=== PATIENT | female | born 1955 | race Caucasian/White ===

== ENCOUNTER 2018-02-11 18:11 | Emergency (ER) | payer BC ==
[2018-02-11] MEDS ORDERED: IOPAMIDOL-300 100 ML VIAL IVP ONE ×2 (18:12→20:11)
--- NOTE | 2018-02-11 19:00 | ED Physician Documentation ---
PD HPI CHEST PAIN - Stated complaint Stated Complaint: CHEST PX/MIOD BACK PX - Chief complaint Chief Complaint: Cardiac - History obtained from History obtained from: Patient - History of Present Illness Timing - onset: Today (Sitting her computer around 6:00 and suddenly felt a sharp pain radiating from the left sternum through to the left scapula. It is better now but not resolved. Of note she is a family history of DVT/PE and took 3 long flights yesterday. Although she does deny shortness of breath, leg pain or swelling.) Review of Systems Ten Systems: 10 systems reviewed and negative Constitutional: denies: Fever, Chills Throat: denies: Dental pain / toothache, Sore throat Cardiac: reports: Chest pain / pressure. denies: Palpitations, Pedal edema, Calf pain Respiratory: denies: Dyspnea PD PAST MEDICAL HISTORY - Past Medical History Endocrine/Autoimmune: HyPOthyroidism GI: Cirrhosis Psych: Depression Derm: Herpes zoster - Past Surgical History General: Cholecystectomy, Colonoscopy, EGD HEENT: Cataracts - Present Medications Home Medications: Ambulatory Orders Medication Instructions Recorded Confirmed Levothyroxine Sodium [Levoxyl] 02/11/18 Metoprolol Succinate 50 mg PO 02/11/18 PARoxetine HCl [Paroxetine HCl] 20 mg PO 02/11/18 Potassium Chloride [Micro-K] 10 meq PO 02/11/18 - Allergies Allergies/Adverse Reactions: Allergies Allergy/AdvReac Type Severity Reaction Status Date / Time No Known Drug Allergies Allergy Verified 02/11/18 18:33 - Social History Does the pt smoke?: No Smoking Status: Never smoker Does the pt drink ETOH?: No Substance Use and Type: Marijuana - Family History Family history: reports: Non contributory PD ED PE NORMAL - Vitals Vital signs reviewed: Yes - General General: Alert and oriented X 3, No acute distress - HEENT HEENT: PERRL, EOMI - Neck Neck: Supple, no meningeal sign, No bony TTP - Cardiac Cardiac: RRR, No murmur - Respiratory Respiratory: No respiratory distress, Clear bilaterally - Abdomen Abdomen: Normal bowel sounds, Soft, Non tender - Back Back: No CVA TTP, No spinal TTP - Derm Derm: Normal color, Warm and dry - Extremities Extremities: No deformity, No tenderness to palpate, No edema, No calf tenderness / cord - Neuro Neuro: Alert and oriented X 3, Normal speech Results - Vitals Vitals: Vital Signs - 24 hr 02/11/18 02/11/18 02/11/18 18:27 19:10 20:42 Temperature 36.0 C L 36.1 C L Heart Rate 58 L 61 58 L Respiratory 18 14 15 Rate Blood Pressure 138/91 H 149/67 H 137/52 H O2 Saturation 99 96 99 Oxygen O2 Source Room air - EKG (time done) 1820 Rate: Rate (enter#) (64) Rhythm: NSR Mckinney: Normal Intervals: Normal TX QRS: Normal Ischemia: Q waves (III/F) Compare to prior EKG: Old EKG unavailable Computer interpretation: Agree with computer - Labs Labs: Laboratory Tests 02/11/18 02/11/18 02/11/18 16:58 16:58 16:58 WBC 7.0 RBC 4.70 Hgb 14.6 Hct 44.3 MCV 94.1 MCH 31.0 MCHC 33.0 RDW 14.2 Plt Count 212 MPV 7.9 Neut # 4.9 Lymph # 1.3 L Gila # 0.6 Eos # 0.2 Baso # 0.0 Absolute Nucleated RBC 0.00 Nucleated RBC % 0.1 Sodium 137 Potassium 3.9 Chloride 103 Carbon Dioxide 24 Anion Gap 10.0 BUN 15 Creatinine 0.7 Estimated GFR (MDRD) 84 L Glucose 95 Calcium 9.4 Total Bilirubin 1.0 AST 26 ALT 19 Alkaline Phosphatase 70 Troponin I < 0.04 Total Protein 7.2 Albumin 4.4 Globulin 2.8 Albumin/Globulin Ratio 1.6 Lipase 27 - Rads (name of study) CTA Chest Radiology: EMP read contemporaneously (NAD) PD MEDICAL DECISION MAKING - ED course ED course: 62-year-old woman with chest pain and the specific concern for DVT/PE given flights yesterday and family history of same. CTA of the chest was done negative for same and her heart score is 1 with nonischemic EKG and completely negative troponin. Departure - Departure Disposition: 01 Home, Self Care Clinical Impression: Chest pain Qualifiers: Chest pain type: unspecified Qualified Code(s): R07.9 - Chest pain, unspecified Condition: Good Record reviewed to determine appropriate education?: Yes Instructions: ED Chest Pain NonCardiac Comments: Call your doctor to arrange a follow-up appointment, make the next available appointment. In the interim, return anytime if worse or if new symptoms develop. Discharge Date/Time: 02/11/18 20:55
[2018-02-11] MEDS ORDERED: MORPHINE 2 MG/ML CARPUJECT IVP STA (19:01)
[2018-02-11 19:05] LABS: BASOPHILS % (AUTO) 0.5 %; EOSINOPHILS # (AUTO) 0.2 10^3/uL (0.0-0.7); EOSINOPHILS % (AUTO) 2.2 %; HGB - HEMOGLOBIN 14.6 g/dL (12.0-16.0); LYMPHOCYTES # (AUTO) 1.3 10^3/uL (1.5-3.5); LYMPHOCYTES % (AUTO) 19.3 %; MEAN CORPUSCULAR VOLUME 94.1 fL (81.0-99.0); MEAN PLATELET VOLUME 7.9 fL (7.9-10.8); MONOCYTES # (AUTO) 0.6 10^3/uL (0.0-1.0); MONOCYTES % (AUTO) 8.3 %; NEUTROPHILS # (AUTO) 4.9 10^3/uL (1.5-6.6); NEUTROPHILS % (AUTO) 69.7 %; PLT - PLATELET COUNT 212 10^3/uL (130-450); RED CELL DISTRIBUTION WIDTH 14.2 % (12.0-15.0)
[2018-02-11] MEDS ORDERED: IOPAMIDOL-300 100 ML VIAL ONE (19:11)
[2018-02-11 19:16] LABS: ALBUMIN 4.4 g/dL (3.2-5.5); ALBUMIN/GLOBULIN RATIO 1.6 (1.0-2.2); CALCIUM 9.4 mg/dL (8.5-10.3); CREATININE 0.7 mg/dL (0.4-1.0); TOTAL PROTEIN 7.2 g/dL (6.7-8.2)
[2018-02-11 20:43] VITALS: BP 137/52
--- NOTE | 2018-02-11 20:43 | CT Report ---
EXAM: CT ANGIOGRAM CHEST EXAM DATE: 02/11/2018 08:11 PM. CLINICAL HISTORY: Chest pain. COMPARISON: None. TECHNIQUE: Routine helical imaging was performed through the chest in the pulmonary arterial phase. I V Contrast: 80 ML Isovue-300. Reconstructions: Coronal 3-D MIP reconstructions.Sagittal and coronal. In accordance with CT protocol optimization, one or more of the following dose reduction techniques w ere utilized for this exam: automated exposure control, adjustment of mA and/or KV based on patient s ize, or use of iterative reconstructive technique. FINDINGS: Pulmonary Arteries: No evidence for pulmonary emboli. Lungs/Pleura: Complex air cyst seen anteriorly in the left lower lobe measuring 3.1 x 1.7 cm with adj acent linear opacity extending inferiorly, suspect scarring. No pleural effusion, consolidation, airs pace disease or pneumothorax. Mediastinum: No cardiac enlargement. 6 mm right hilar lymph node. No mediastinal or hilar lymphadenop athy. Thoracic Aorta: Unremarkable. Upper Abdomen: Liver surface irregularity as seen with liver cirrhosis. Status post cholecystectomy. Mildly dilated common duct measuring 1 cm. Focal cleft at the posterior aspect of the right hepatic l obe with focal liver calcification. No acute bone findings seen. IMPRESSION: 1. No evidence for pulmonary emboli. 2. No acute findings seen. 3. Liver cirrhosis. Status post cholecystectomy. Mildly dilated common duct. LAKSH[facility] Referring Provider Line: [phone] SITE ID: [id number]
--- NOTE | 2018-02-11 20:43 | CT Preliminary Report ---
Exam: CT CHEST ANGIO (PE) IMPRESSION: 1. No evidence for pulmonary emboli. 2. No acute findings seen. 3. Liver cirrhosis. Status post cholecystectomy. Mildly dilated common duct. [facility] SITE ID: [id number]
== END 2018-02-11 20:55 | disposition home or self-care (01) ==
LOC: ED 18:11
DX: R07.9 Chest pain, unspecified (principal); E03.9 Hypothyroidism, unspecified
CPT/HCPCS: 36415; 71275; 80053; 83690; 84484; 85025; 93005; 96374; 99283; 99284; Q9967

== ENCOUNTER 2019-01-01 08:11 | Outpatient (CLI) | payer MEDICARE, BC ==
--- NOTE | 2019-01-04 09:02 | Mammography Report ---
Reason: SCREENING MAMMO Procedure Date: 01/01/2019 Accession Number: [id number] / [id number] Procedure: PAUL - Screening Mammo w/Otto CPT Code: FULL RESULT: EXAM: Screening Mammo w/Otto DATE: 01/01/2019 8:47 AM CLINICAL HISTORY: Routine screening. No reported personal or family history of breast cancer. History of bilateral excisional biopsy. TECHNIQUE: Bilateral CC and MLO views were obtained. COMPARISON: 11/04/2013 through 05/11/2009 FINDINGS: The breasts demonstrate heterogeneously dense fibroglandular parenchyma bilaterally. Bilateral breasts: There are stable excisional biopsy changes in the upper outer breasts bilaterally. There are no suspicious masses, calcifications or areas of distortion. IMPRESSION: Benign findings RECOMMENDATION: Routine annual screening unless otherwise clinically indicated. BI-RADS CATEGORY 2: Benign findings STANDARD QUALIFYING STATEMENTS: 1. This examination was not reviewed with the aid of Computer-Aided Detection (CAD). 2. A negative or benign imaging report should not preclude biopsy if clinically suspicious findings are present. 3. Dense breasts may obscure an underlying neoplasm. 4. This examination was reviewed with the aid of 3D breast imaging (tomosynthesis).
== END 2019-01-01 08:12 | disposition home or self-care (01) ==
LOC: DI 08:11
DX: Z12.31 Encounter for screening mammogram for malignant neoplasm of breast (principal)
CPT/HCPCS: 77063; 77067

== ENCOUNTER 2019-04-02 08:00 | Outpatient (CLI) | payer MEDICARE, BC ==
[2019-04-02 18:37] LABS: BASOPHILS # (AUTO) 0.1 10^3/uL (0.0-0.1); BASOPHILS % (AUTO) 1.3 %; EOSINOPHILS # (AUTO) 0.1 10^3/uL (0.0-0.7); EOSINOPHILS % (AUTO) 3.5 %; HGB - HEMOGLOBIN 13.4 g/dL (12.0-16.0); LYMPHOCYTES # (AUTO) 1.1 10^3/uL (1.5-3.5); LYMPHOCYTES % (AUTO) 27.3 %; MEAN CORPUSCULAR HEMOGLOBIN 31.5 pg (27.0-31.0); MEAN CORPUSCULAR HGB CONC 32.9 g/dL (32.0-36.0); MEAN CORPUSCULAR VOLUME 95.9 fL (81.0-99.0); MEAN PLATELET VOLUME 8.4 fL (7.9-10.8); MONOCYTES # (AUTO) 0.4 10^3/uL (0.0-1.0); MONOCYTES % (AUTO) 9.7 %; NEUTROPHILS # (AUTO) 2.3 10^3/uL (1.5-6.6); NEUTROPHILS % (AUTO) 58.2 %; PLT - PLATELET COUNT 167 10^3/uL (130-450); RED BLOOD COUNT 4.24 10^6/uL (4.20-5.40)
[2019-04-02 18:59] LABS: HB2 TOTAL 13.7 g/dL; HEMOGLOBIN A1C 0.55 g/dL; HEMOGLOBIN A1C % 5.8 % (4.6-6.2)
[2019-04-02 19:00] LABS: ALBUMIN 3.9 g/dL (3.2-5.5); ALBUMIN/GLOBULIN RATIO 1.5 (1.0-2.2); ALKALINE PHOSPHATASE 60 IU/L (42-121); ALT ALANINE AMINOTRANSFERASE 17 IU/L (10-60); AST ASPARTATE AMINOTRANSFERASE 23 IU/L (10-42); BILIRUBIN,TOTAL 0.7 mg/dL (0.2-1.0); BUN - BLOOD UREA NITROGEN 18 mg/dL (6-20); CALCIUM 9.1 mg/dL (8.5-10.3); CARBON DIOXIDE - CO2 29 mmol/L (21-32); CHLORIDE 104 mmol/L (101-111); CHOLESTEROL 163 mg/dL; CREATININE 0.6 mg/dL (0.4-1.0); GFR - MDRD 100 (>89); GLUCOSE 79 mg/dL (70-100); HDL CHOLESTEROL 55 mg/dL; LDL CHOLESTEROL,CALCULATED 97 mg/dL; LDL/HDL RATIO 1.8 (<4.4); SODIUM 139 mmol/L (135-145); TOTAL PROTEIN 6.5 g/dL (6.7-8.2); VLDL CHOLESTEROL 11 mg/dL
== END 2019-04-02 23:59 | disposition home or self-care (01) ==
LOC: LAB.WCP 08:00
PROVIDERS: ATTEND Family Medicine
DX: R73.01 Impaired fasting glucose (principal); E78.5 Hyperlipidemia, unspecified; E03.9 Hypothyroidism, unspecified; R61 Generalized hyperhidrosis
CPT/HCPCS: 36415; 80053; 80061; 83036; 83721; 84443; 85025

== ENCOUNTER 2019-04-16 10:31 | Outpatient (CLI) | payer MEDICARE, BC ==
[2019-04-16] MEDS ORDERED: IOVERSOL 320 50 ML VIAL ONE (10:44)
[2019-04-16] MEDS ORDERED: IOVERSOL 320 100 ML VIAL IVP ONE ×2 (10:44→11:57)
[2019-04-16] MEDS ORDERED: IOVERSOL 320 50 ML VIAL PO ONE (11:57)
--- NOTE | 2019-04-16 15:07 | XRAY Report ---
Reason: RIGHT SHOULDER PAIN Procedure Date: 04/16/2019 Accession Number: [id number] / [id number] Procedure: XR - Shoulder 3 View RT CPT Code: FULL RESULT: EXAM: RIGHT SHOULDER RADIOGRAPHY EXAM DATE: 04/16/2019 10:46 AM. CLINICAL HISTORY: RIGHT SHOULDER PAIN. COMPARISON: None. TECHNIQUE: 3 views. FINDINGS: Bones: Normal. No fracture or bone lesion. Joints: AC joint hypertrophy. Glenohumeral joint intact Soft tissues: The visualized hemithorax is unremarkable. No soft tissue swelling. IMPRESSION: AC joint DJD RADIA
--- NOTE | 2019-04-17 05:11 | CT Report ---
Reason: NIGHT SWEATS, TOXIC EFFECT OF OTHER PESTICIDES, UN Procedure Date: 04/16/2019 Accession Number: [id number] / [id number] Procedure: CT - Abdomen/Pelvis W CPT Code: FULL RESULT: EXAM: CT ABDOMEN AND PELVIS EXAM DATE: 04/16/2019 11:56 AM. CLINICAL HISTORY: Night sweats, toxic effect of other pesticides, un. COMPARISONS: None. TECHNIQUE: Routine helical CT imaging was performed through the abdomen and pelvis. IV contrast: 80 ML Optiray 320. Enteric contrast: Present. Reconstructions: Coronal and sagittal. In accordance with CT protocol optimization, one or more of the following dose reduction techniques were utilized for this exam: automated exposure control, adjustment of mA and/or KV based on patient size, or use of iterative reconstructive technique. FINDINGS: ABDOMEN: Liver: Macronodular appearance of the liver, possibly to underlying cirrhosis. There are a few scattered periportal calcifications and associated parenchymal scarring within the posterior segment of the right lobe of the liver (image 27 series 3). Stomach/Distal Esophagus: No significant abnormality. Gallbladder: Surgically absent. Bile Ducts: Mild intrahepatic and extrahepatic biliary prominence, probably post cholecystectomy physiology. Pancreas: No significant abnormality. Spleen: No significant abnormality. Kidneys: No suspicious solid appearing lesion. No hydronephrosis. Small posteriorly arising low density focus within the right mid kidney is noted, measuring up to 1.5 cm (was 37 series 3), possibly a cyst. This is difficult to fully characterize on this exam. Adrenals: No significant abnormality. Bowel: No obstruction. Average fecal residual. Appendix: The appendix could not be identified with certainty. However, there are no secondary signs of appendicitis demonstrated at this time. Lymph Nodes: No pathologically enlarged nodes. Vasculature: Normal caliber aorta. Mild to moderate atherosclerosis noted. Fluid: No significant free fluid. Abdominal Wall: No significant abnormality. Other: No significant abnormality. PELVIS: Uterus and Ovaries: No significant abnormality. Bladder: No significant abnormality. Lymph Nodes: No pathologically enlarged nodes. Fluid: No significant free fluid. Other: None. BONES: No suspicious bony lesions. LOWER CHEST: No significant consolidation or effusion. There is focal bronchiolectasis within the lateral portion of the left lower lobe. No significant primary consolidation. Mild linear atelectasis within the lung bases. IMPRESSION: No definite acute abdominal or pelvic abnormality. RADIA
--- NOTE | 2019-04-17 13:21 | XRAY Report ---
Reason: GENERALIZED HYPERHIDROSIS Procedure Date: 04/16/2019 Accession Number: [id number] / [id number] Procedure: XR - Chest 2 View X-Ray CPT Code: 27881 FULL RESULT: EXAM: CHEST RADIOGRAPHY EXAM DATE: 04/16/2019 10:40 AM. CLINICAL HISTORY: GENERALIZED HYPERHIDROSIS. COMPARISON: XR CHEST PA AND LAT 09/02/2012 12:47 PM. TECHNIQUE: 2 views. FINDINGS: Lungs/Pleura: No focal opacities evident. No pleural effusion. No pneumothorax. Normal volumes. Mediastinum: Heart and mediastinal contours are unremarkable. Other: Cholecystectomy clips are seen in the right upper quadrant. IMPRESSION: No acute cardiopulmonary process. RADIA
== END 2019-04-16 10:32 | disposition home or self-care (01) ==
LOC: DI 10:31
PROVIDERS: ATTEND Family Medicine
DX: M19.011 Primary osteoarthritis, right shoulder (principal); R61 Generalized hyperhidrosis; T60 Toxic effect of pesticides
CPT/HCPCS: 71046; 73030; 74177; Q9967

== ENCOUNTER 2020-06-06 10:56 | Outpatient (CLI) | payer MEDICARE, BC ==
[2020-06-06 18:16] LABS: BASOPHILS # (AUTO) 0.1 10^3/uL (0.0-0.1); BASOPHILS % (AUTO) 1.1 %; EOSINOPHILS # (AUTO) 0.2 10^3/uL (0.0-0.7); EOSINOPHILS % (AUTO) 3.4 %; HGB - HEMOGLOBIN 13.5 g/dL (12.0-16.0); LYMPHOCYTES # (AUTO) 1.5 10^3/uL (1.5-3.5); LYMPHOCYTES % (AUTO) 31.3 %; MEAN CORPUSCULAR HEMOGLOBIN 32.2 pg (27.0-31.0); MEAN CORPUSCULAR HGB CONC 31.8 g/dL (32.0-36.0); MEAN CORPUSCULAR VOLUME 101.4 fL (81.0-99.0); MONOCYTES # (AUTO) 0.5 10^3/uL (0.0-1.0); MONOCYTES % (AUTO) 10.6 %; NEUTROPHILS # (AUTO) 2.5 10^3/uL (1.5-6.6); PLT - PLATELET COUNT 184 10^3/uL (130-450); RED BLOOD COUNT 4.19 10^6/uL (4.20-5.40); WHITE BLOOD COUNT 4.6 x10^3/uL (4.8-10.8)
[2020-06-06 18:39] LABS: ALBUMIN 4.1 g/dL (3.2-5.5); ALBUMIN/GLOBULIN RATIO 1.6 (1.0-2.2); ALKALINE PHOSPHATASE 90 IU/L (42-121); ALT ALANINE AMINOTRANSFERASE 21 IU/L (10-60); AST ASPARTATE AMINOTRANSFERASE 26 IU/L (10-42); BILIRUBIN,TOTAL 0.3 mg/dL (0.2-1.0); BUN - BLOOD UREA NITROGEN 14 mg/dL (6-20); CALCIUM 9.2 mg/dL (8.5-10.3); CARBON DIOXIDE - CO2 31 mmol/L (21-32); CHLORIDE 105 mmol/L (101-111); CHOL/HDL RATIO 2.6 (<4.4); CHOLESTEROL 163 mg/dL; CREATININE 0.7 mg/dL (0.4-1.0); GLUCOSE 97 mg/dL (70-100); HDL CHOLESTEROL 62 mg/dL; LDL CHOLESTEROL,CALCULATED 86 mg/dL; LDL/HDL RATIO 1.4 (<4.4); SODIUM 142 mmol/L (135-145); TOTAL PROTEIN 6.7 g/dL (6.7-8.2); VLDL CHOLESTEROL 15 mg/dL
[2020-06-06 19:05] LABS: HB2 TOTAL 13.8 g/dL; HEMOGLOBIN A1C 0.48 g/dL; HEMOGLOBIN A1C % 5.3 % (4.6-6.2)
== END 2020-06-06 23:59 | disposition home or self-care (01) ==
LOC: LAB.WCP 10:56
PROVIDERS: ATTEND Family Medicine
DX: J44.9 Chronic obstructive pulmonary disease, unspecified (principal); E03.9 Hypothyroidism, unspecified; R73.01 Impaired fasting glucose; E78.5 Hyperlipidemia, unspecified
CPT/HCPCS: 36415; 80053; 80061; 83036; 83721; 84443; 85025

== ENCOUNTER 2021-05-15 08:00 | Outpatient (CLI) | payer MEDICARE, BC ==
[2021-05-15 18:44] LABS: BASOPHILS # (AUTO) 0.1 10^3/uL (0.0-0.1); BASOPHILS % (AUTO) 1.3 %; EOSINOPHILS # (AUTO) 0.1 10^3/uL (0.0-0.7); EOSINOPHILS % (AUTO) 2.5 %; HCT - HEMATOCRIT 41.8 % (37.0-47.0); HGB - HEMOGLOBIN 13.2 g/dL (12.0-16.0); LYMPHOCYTES # (AUTO) 1.5 10^3/uL (1.5-3.5); LYMPHOCYTES % (AUTO) 28.1 %; MEAN CORPUSCULAR HEMOGLOBIN 31.7 pg (27.0-31.0); MEAN CORPUSCULAR HGB CONC 31.6 g/dL (32.0-36.0); MEAN CORPUSCULAR VOLUME 100.2 fL (81.0-99.0); MEAN PLATELET VOLUME 9.5 fL (7.9-10.8); MONOCYTES # (AUTO) 0.5 10^3/uL (0.0-1.0); MONOCYTES % (AUTO) 8.9 %; NEUTROPHILS # (AUTO) 3.1 10^3/uL (1.5-6.6); NEUTROPHILS % (AUTO) 58.8 %; PLT - PLATELET COUNT 200 10^3/uL (130-450); RED BLOOD COUNT 4.17 10^6/uL (4.20-5.40); RED CELL DISTRIBUTION WIDTH 13.4 % (12.0-15.0); WHITE BLOOD COUNT 5.3 x10^3/uL (4.8-10.8)
[2021-05-15 19:03] LABS: ALBUMIN 4.1 g/dL (3.2-5.5); ALBUMIN/GLOBULIN RATIO 1.5 (1.0-2.2); ALKALINE PHOSPHATASE 78 IU/L (42-121); ALT ALANINE AMINOTRANSFERASE 15 IU/L (10-60); AST ASPARTATE AMINOTRANSFERASE 21 IU/L (10-42); BILIRUBIN,TOTAL 0.8 mg/dL (0.2-1.0); BUN - BLOOD UREA NITROGEN 14 mg/dL (6-20); CALCIUM 9.4 mg/dL (8.5-10.3); CARBON DIOXIDE - CO2 31 mmol/L (21-32); CHLORIDE 103 mmol/L (101-111); CHOL/HDL RATIO 2.9 (<4.4); CHOLESTEROL 190 mg/dL; CREATININE 0.7 mg/dL (0.4-1.0); GFR - MDRD 83 (>89); GLUCOSE 92 mg/dL (70-100); HDL CHOLESTEROL 66 mg/dL; LDL CHOLESTEROL,CALCULATED 111 mg/dL; LDL/HDL RATIO 1.7 (<4.4); POTASSIUM 4.6 mmol/L (3.5-5.0); SODIUM 141 mmol/L (135-145); TOTAL PROTEIN 6.8 g/dL (6.7-8.2); TRIGLYCERIDES 63 mg/dL; VLDL CHOLESTEROL 13 mg/dL
[2021-05-15 19:18] LABS: THYROID STIMULATING HORMONE 1.51 uIU/mL (0.34-5.60)
[2021-05-15 20:12] LABS: ESTIMATED AVERAGE GLUCOSE 105 mg/dL (70-100); HEMOGLOBIN A1c% 5.3 % (4.27-6.07)
== END 2021-05-15 23:59 | disposition home or self-care (01) ==
LOC: LAB.WCP 08:00
PROVIDERS: ATTEND Family Medicine
DX: E03.9 Hypothyroidism, unspecified (principal); E78.5 Hyperlipidemia, unspecified; R73.01 Impaired fasting glucose
CPT/HCPCS: 36415; 80053; 80061; 83036; 83721; 84443; 85025

== ENCOUNTER 2021-05-21 13:26 | Outpatient (CLI) | payer MEDICARE, BC ==
--- NOTE | 2021-05-21 16:23 | XRAY Report ---
PROCEDURE: Knee 4 View BILAT INDICATIONS: BILATERAL KNEE PAIN TECHNIQUE: 4 views of the right and left knee(s) were acquired. COMPARISON: None. FINDINGS: Bones: No fractures or dislocations. No suspicious bony lesions. Moderate bilateral medial compartm ent arthritis including joint space narrowing and marginal osteophytosis. Mild bilateral lateral and patellofemoral compartment osteoarthritis including marginal osteophytosis. Soft tissues: No joint effusion. No suspicious soft tissue calcifications. IMPRESSION: 1. Bilateral knee osteoarthritis. 2. No fracture. No acute osseous lesion. If there persistent symptoms or continued clinical concern f or pathology, then repeat plain film radiographs (7-10 days) or advanced imaging (CT, MR, bone scan) should be considered for further evaluation. Reviewed by: Val Anderson MD, PhD on 05/21/2021 4:22 PM PDT Approved by: Val Anderson MD, PhD on 05/21/2021 4:22 PM PDT Station ID: [id number]
== END 2021-05-21 13:27 | disposition home or self-care (01) ==
LOC: DI 13:26
PROVIDERS: ATTEND Family Medicine
DX: M17.0 Bilateral primary osteoarthritis of knee (principal)

== ENCOUNTER 2021-10-18 14:26 | Outpatient (CLI) | payer MEDICARE, BC ==
--- NOTE | 2021-10-19 07:51 | Mammography Report ---
BILATERAL DIGITAL SCREENING MAMMOGRAM 3D/2D: 10/18/2021 CLINICAL: Routine screening. Comparison is made to exams dated: 01/01/2019 mammogram, 11/04/2013 mammogram, and 04/23/2012 mammogram - [facility]. The tissue of both breasts is heterogeneously dense. This may lower the sensitivity of mammography. There are benign calcifications in both breasts. No significant masses, calcifications, or other findings are seen in either breast. There has been no significant interval change. IMPRESSION: BENIGN There is no mammographic evidence of malignancy. A 1 year screening mammogram is recommended. This exam was interpreted at Station ID: [id number]. NOTE: For mammograms, a report in lay terms will be sent to the patient. Approximately 15% of breast malignancies will not be visualized mammographically. In the management of a palpable breast mass, a negative mammogram must not discourage biopsy of a clinically suspicious lesion. Electronically Signed By: Duke Velez M.D. aty/penrad:10/18/2021 15:29:57 ACR BI-RADS Category 2: Benign Finding(s) 3342F PARENCHYMAL PATTERN: (D) - The breast(s) demonstrate(s) heterogeneously dense fibroglandular parelena lora. BI-RADS CATEGORY: (2) - 2 RECOMMENDATION: (ANNUAL) - Recommend routine annual screening mammography. [id number] 1 year screening LATERALITY: (B)
== END 2021-10-18 14:27 | disposition home or self-care (01) ==
LOC: DI 14:26
DX: Z12.31 Encounter for screening mammogram for malignant neoplasm of breast (principal)

== ENCOUNTER 2022-02-21 08:42 | Outpatient (CLI) | payer MEDICARE, BC ==
--- NOTE | 2022-02-21 12:00 | DEXA Report ---
PROCEDURE: Dexa Spine and/or Hip INDICATIONS: OSTEOPENIA / SONE DISORDERS TECHNIQUE: Dual energy x-ray absorptiometry (DXA) was performed on a [employer] System. Regions measur ed are the AP Spine, femoral neck, and if needed forearm. COMPARISON: None. FINDINGS: Lumbar Spine: Bone Mineral Density 1.083 g/cm/cm,T score -0.8, normal Left Hip: Bone Mineral Density 0.777 g/cm/cm,T score -1.8, osteopenia Left Femoral Neck: Bone Mineral Density 0.759 g/cm/cm, T score -2.0, osteopenia (T score greater or equal to -1.0: NORMAL) (T score from -1.1 to -2.4: OSTEOPENIA) (T score less than or equal to -2.5 to: OSTEOPOROSIS) Impression: Osteopenia. Patients with diagnosis of osteoporosis or osteopenia should have regular bone mineral density assess ment. For those eligible for Medicare, routine testing is allowed once every 2 years. Testing frequ ency can be increased for patients who have rapidly progressing disease or for those who are receivin g medical therapy to restore bone mass. Reviewed by: Val Anderson MD, PhD on 02/21/2022 11:59 AM PDT Approved by: Val Anderson MD, PhD on 02/21/2022 11:59 AM PDT Station ID: [id number]
== END 2022-02-21 08:43 | disposition home or self-care (01) ==
LOC: DI 08:42
PROVIDERS: ATTEND Family Medicine
DX: M85.89 Other specified disorders of bone density and structure, multiple sites (principal)

== ENCOUNTER 2022-04-15 10:25 | Outpatient (CLI) | payer MEDICARE, BC ==
--- NOTE | 2022-04-15 13:23 | Ultrasound Report ---
PROCEDURE: Abdomen Complete INDICATIONS: CIRRHOSIS TECHNIQUE: Real-time scanning was performed of the abdominal and retroperitoneal organs, with image documentatio n. COMPARISON: CT abdomen pelvis 04/16/2019 FINDINGS: Liver: Liver is slightly diminutive in size measuring 11.8 cm in length. The parenchyma is diffusely coarse and mildly hyperechoic. The margin is nodular. Irregular heterogeneously hyperechoic mass kvng trally in the right lobe of the liver near the jacobo hepatis measuring 2.4 x 1.6 x 2.4 cm casting pos terior shadow. Main portal vein demonstrates appropriate direction of flow. Gallbladder: Gallbladder surgically absent. The common duct is slightly dilated at 11 mm. Intrahepati c bile ducts are normal caliber. Pancreas: Visualized portions of the pancreas are sonographically normal. Spleen: Spleen is normal in size at 9.9 cm in length, and homogeneous in echotexture. Kidneys: Kidneys are normal in size and echotexture. Right kidney measures 10.1 cm long; left kidne y measures 10.6 cm long. No hydronephrosis or nephrolithiasis. No solid masses. Simple cyst arisin g from the lateral right kidney. Aorta: Visualized aorta is normal in caliber at less than 3 cm. Iliacs: Proximal common iliac arteries are normal in caliber at less than 2.5 cm. IVC: Intrahepatic inferior vena cava is patent. Miscellaneous: No free abdominal fluid. IMPRESSION: 1. Cirrhotic liver morphology. 2. Irregular, echogenic, shadowing liver mass. Prior CT scan demonstrated a corresponding collection of coarse calcifications in the jacobo hepatis, though less extensive in size. Further evaluation with CT is recommended. 3. Minimal common duct dilatation post cholecystectomy. Correlate with LFTs to determine clinical sig nificance. Reviewed by: Cinthia Maldonado MD on 04/15/2022 1:22 PM PDT Approved by: Cinthia Maldonado MD on 04/15/2022 1:22 PM PDT Station ID: [id number]
== END 2022-04-15 10:26 | disposition home or self-care (01) ==
LOC: DI 10:25
PROVIDERS: ATTEND Physician Assistant
DX: K74.60 Unspecified cirrhosis of liver (principal); R16.0 Hepatomegaly, not elsewhere classified

== ENCOUNTER 2022-10-25 09:45 | Outpatient (CLI) | payer MEDICARE, BC ==
[2022-10-25] MEDS ORDERED: iohexoL-300 100 ML VIAL ONE (10:00)
[2022-10-25 10:09] LABS: ALBUMIN 4.2 g/dL (3.2-5.5); ALBUMIN/GLOBULIN RATIO 1.4 (1.0-2.2); BILIRUBIN,TOTAL 0.7 mg/dL (0.2-1.0); CALCIUM 9.4 mg/dL (8.5-10.3); CREATININE 0.8 mg/dL (0.4-1.0); TOTAL PROTEIN 7.1 g/dL (6.7-8.2)
--- NOTE | 2022-10-25 11:28 | MRI Report ---
PROCEDURE: BRAIN WO INDICATIONS: LIVER MASS, VISUAL HALOS, BALANCE PROBLEM TECHNIQUE: Noncontrast axial T1 spin echo, axial T2 fast spin echo, sagittal and axial FLAIR, coronal T2 fast sp in echo, axial gradient echo, axial diffusion and ADC through the brain. COMPARISON: None. FINDINGS: Image quality: Excellent. CSF Spaces: Basal cisterns are patent. No extra-axial fluid collections. Ventricles are normal in size and shape. Brain: There is a left frontal extra-axial low signal mass which is highly likely a benign calcified meningioma, measuring approximately 1.6 x 2.1 x 1.5 cm. No intra-axial masses. No hemorrhage. No int racranial masses or hemorrhage. Richardson/white matter interface is normal. Age-appropriate volume loss. No significant small vessel ischemic change. Brainstem appears normal. Diffusion-weighted images de monstrate no acute ischemic insult. No chronic ischemic insults. Normal intravascular flow voids ar e present. Skull and face: Calvarium has normal marrow signal. Orbits appear normal. Sinuses: Sinuses and mastoids are clear. IMPRESSION: 1. Probable incidental 2.1 cm maximum diameter left frontal meningioma without any mass effect or freeman ma. 2. No evidence acute intracranial process. Reviewed by: Jigar Tidwell MD on 10/25/2022 11:27 AM PST Approved by: Jigar Tidwell MD on 10/25/2022 11:27 AM PST Station ID: [id number]
--- NOTE | 2022-10-25 13:19 | CT Report ---
PROCEDURE: ABDOMEN W/WO INDICATIONS: LIVER MASS, VISUAL HALOS, BALANCE PROBLEM CONTRAST: 100ml omni 300 TECHNIQUE: 4 phase scanning was performed. After the administration of intravenous contrast, 5 mm thick section s acquired from the diaphragm to the symphysis. 5 mm coronal and sagittal reformats were acquired. For radiation dose reduction, the following was used: automated exposure control, adjustment of mA a nd/or kV according to patient size. COMPARISON: MRI abdomen 05/23/2022. Abdominal ultrasound 04/15/2022. CT abdomen and pelvis 04/16/2019. CT pulmonary angiogram 02/11/2018. FINDINGS: Image quality: Good. Lung bases: No pleural effusion. Cyst at the left lower lobe. Heart size is normal. Liver: Lobulated appearance. Small calcification at the medial right lobe of the liver measuring 1.2 cm, (05/27), remotely 1.8 cm in 2019. No arterial hyperenhancement. No washout. Other solid organs: Gallbladder is absent. Biliary system is non dilated. Pancreas is normal in mo rphology. Spleen is normal in size and enhancement. No adrenal nodules. Both kidneys demonstrate n ormal size and enhancement, without hydronephrosis or nephrolithiasis. Nodes and vessels: No retroperitoneal or mesenteric adenopathy by size criteria. Aorta and inferior vena cava are normal in size. Mild to moderate calcified plaque. Bowel and peritoneum: Unenhanced bowel loops are normal in caliber. No free fluid or air. Bones: No suspicious bony lesions. No vertebral body compression fractures. Miscellaneous: No ventral hernias. IMPRESSION: 1. No LR 4 or LR 5 observations to suggest HCC. 2. Right lobe medial calcified lesion is decreased in size compared to 2019. No suspicious enhancemen t demonstrated. 3. No adenopathy. Reviewed by: Edu Lozada MD on 10/25/2022 1:18 PM PST Approved by: Edu Lozada MD on 10/25/2022 1:18 PM PST Station ID: [id number]
[2022-10-25] MEDS: iohexoL-300 100 ML VIAL IVP ONE (14:14)
== END 2022-10-25 09:46 | disposition home or self-care (01) ==
LOC: LAB 09:45
PROVIDERS: ATTEND Physician Assistant
DX: K70.30 Alcoholic cirrhosis of liver without ascites (principal); H53.19 Other subjective visual disturbances; R27.9 Unspecified lack of coordination; K76.89 Other specified diseases of liver
CPT/HCPCS: 36415; 70551; 74170; 80053; Q9967

== ENCOUNTER 2024-03-30 15:09 | Outpatient (CLI) | payer MEDICARE, BC ==
--- NOTE | 2024-04-01 10:58 | Mammography Report ---
BILATERAL DIGITAL SCREENING MAMMOGRAM 3D/2D: 03/30/2024 CLINICAL: Routine screening. Comparison is made to exams dated: 10/18/2021 mammogram and 01/01/2019 mammogram - [facility]. There are scattered areas of fibroglandular density in both breasts (category b / 25%-50% glandular t issue). There is an asymmetry in the right breast anterior depth central to the nipple seen on the mediolater al oblique view only. No other significant masses, calcifications, or other findings are seen in either breast. IMPRESSION: INCOMPLETE: NEEDS ADDITIONAL IMAGING EVALUATION The asymmetry in the right breast is indeterminate. Additional views with possible ultrasound are re commended. Based on the Tyrer Cuzick model (a risk assessment model) the patient's lifetime risk is 4.6% and her 10 year risk is 2.9%. According to the ACR, ACS, and NCCN guidelines, an annual breast MRI exam lorraine g with mammogram is recommended if the patient's lifetime risk is 20% or greater. This exam was interpreted at Station ID: [id number]. NOTE: For mammograms, a report in lay terms will be sent to the patient. Approximately 15% of breast malignancies will not be visualized mammographically. In the management of a palpable breast mass, a negative mammogram must not discourage biopsy of a clinically suspicious lesion. Electronically Signed By: Sarah heck/jennyfer:03/31/2024 12:49:46 ACR BI-RADS Category 0: Incomplete 3340F PARENCHYMAL PATTERN: (A) - The breast(s) demonstrate(s) scattered fibroglandular densities. BI-RADS CATEGORY: (0) - 0 Mammo and [place] [id number] Immediate follow-up LATERALITY: (B)
== END 2024-03-30 15:10 | disposition home or self-care (01) ==
LOC: DI 15:09
PROVIDERS: ATTEND Nurse Practitioner
DX: Z12.31 Encounter for screening mammogram for malignant neoplasm of breast (principal); R92.8 Other abnormal and inconclusive findings on diagnostic imaging of breast; R92.323 Mammographic fibroglandular density, bilateral breasts

== ENCOUNTER 2024-04-19 12:44 | Outpatient (CLI) | payer MEDICARE, BC ==
--- NOTE | 2024-04-19 14:03 | XRAY Report ---
PROCEDURE: Knee 4+V RT INDICATIONS: PAIN IN RIGHT KNEE TECHNIQUE: 4 views of the knee(s) were acquired. COMPARISON: None. FINDINGS: Bones: No fractures or dislocations. No suspicious bony lesions. Tricompartmental joint space narro wing with associated osteophytosis. Soft tissues: No knee joint effusion. No suspicious soft tissue calcifications or masses. Chondroca lcinosis. IMPRESSION: Mild to moderate tricompartmental osteoarthritis. Kellgren-Fidencio scale of osteoarthritis: 2. Chondrocalcinosis, which could be age-related, associated with CPPD or parathyroid disorder. Reviewed by: Benedicto Barcenas MD on 04/19/2024 2:02 PM PDT Approved by: Benedicto Barcenas MD on 04/19/2024 2:02 PM PDT Station ID: [id number]
== END 2024-04-19 12:45 | disposition home or self-care (01) ==
LOC: DI 12:44
PROVIDERS: ATTEND Physician Assistant Surgical
DX: M17.11 Unilateral primary osteoarthritis, right knee (principal); M11.261 Other chondrocalcinosis, right knee

== ENCOUNTER 2024-05-05 10:28 | Outpatient (CLI) | payer MEDICARE, BC ==
--- NOTE | 2024-05-06 10:21 | Mammography Report ---
UNILATERAL RIGHT DIGITAL DIAGNOSTIC MAMMOGRAM 3D/2D WITH SPOT COMPRESSION: 05/05/2024 CLINICAL: Patient returns today to evaluate an asymmetry in the right breast. Comparison is made to exams dated: 03/30/2024 mammogram, 01/01/2019 mammogram, and 10/18/2021 mammogram - [facility]. There are scattered areas of fibroglandular density in the right breast (category b / 25%-50% glandul ar tissue). There is an asymmetry in the right breast anterior depth superior region seen on the mediolateral obl ique view only. This is seen in additional views. No other significant masses or calcifications are seen in the breast. IMPRESSION: INCOMPLETE: NEEDS ADDITIONAL IMAGING EVALUATION The asymmetry in the right breast is indeterminate. An ultrasound is recommended. Based on the Tyrer Cuzick model (a risk assessment model) the patient's lifetime risk is 4.6% and her 10 year risk is 2.9%. According to the ACR, ACS, and NCCN guidelines, an annual breast MRI exam lorraine g with mammogram is recommended if the patient's lifetime risk is 20% or greater. This exam was interpreted at Station ID: [id number]. NOTE: For mammograms, a report in lay terms will be sent to the patient. Approximately 15% of breast malignancies will not be visualized mammographically. In the management of a palpable breast mass, a negative mammogram must not discourage biopsy of a clinically suspicious lesion. Electronically Signed By: Pravin Islas M.D. lc/:05/05/2024 11:45:48 ACR BI-RADS Category 0: Incomplete 3340F PARENCHYMAL PATTERN: (A) - The breast(s) demonstrate(s) scattered fibroglandular densities. BI-RADS CATEGORY: (0) - 0 Ultrasound [id number] Immediate follow-up LATERALITY: (B)
--- NOTE | 2024-05-06 10:22 | Ultrasound Report ---
LIMITED ULTRASOUND OF RIGHT BREAST AND AXILLA: 05/05/2024 CLINICAL: Patient returns today to evaluate a focal asymmetry in the right breast. Comparison is made to exams dated: 03/30/2024 mammogram, 10/18/2021 mammogram, and 01/01/2019 mammogram - [facility]. Color flow ultrasound of the right breast 12 o'clock, retroareolar, and axilla regions was performed. Richardson scale images of the real-time examination were reviewed. There is a possible 0.8 cm x 0.4 cm x 0.7 cm oval mass in the right breast at 12 o'clock in the retro areolar region 1 cm from the nipple. This correlates with mammography findings. No significant abnormalities were seen sonographically in the right axilla. IMPRESSION: SUSPICIOUS OF MALIGNANCY The possible 0.8 cm x 0.4 cm x 0.7 cm oval mass vs. complicated cyst in the right breast is at a low suspicion for malignancy. US biopsy recomended. This exam was interpreted at Station ID: [id number]. Electronically Signed By: Pravin Islas M.D. lc/:05/05/2024 11:47:16 Ultrasound BI-RADS: 4a Low suspicion for malignancy BI-RADS CATEGORY: (4a) - Low Susp Biopsy follow-up [id number] Immediate follow-up LATERALITY: (B)
== END 2024-05-05 10:29 | disposition home or self-care (01) ==
LOC: DI 10:28
PROVIDERS: ATTEND Nurse Practitioner
DX: R92.8 Other abnormal and inconclusive findings on diagnostic imaging of breast (principal); R92.321 Mammographic fibroglandular density, right breast

== ENCOUNTER 2024-05-19 09:59 | Outpatient (CLI) | payer MEDICARE, BC ==
[~2024-05-19 09:59] MED LIST: LIDOCAINE 1%-EPI 1:100000 20 ML MDV ONE; LIDOCAINE-MPF 1% 5 ML VIAL ONE
[2024-05-19] MEDS: LIDOCAINE 1%-EPI 1:100000 20 ML MDV SUBQ ONE (11:59)
[2024-05-19] MEDS: LIDOCAINE-MPF 1% 5 ML VIAL TD ONE (12:01)
--- NOTE | 2024-05-20 10:33 | Mammography Report ---
UNILATERAL RIGHT DIGITAL DIAGNOSTIC MAMMOGRAM - RIGHT BREAST POST-PROCEDURE IMAGING FOR MARKER PLACEM ENT: 05/19/2024 CLINICAL: Post right breast ultrasound biopsy clip placement imaging. Comparison is made to exams dated: 05/05/2024 ultrasound, 05/05/2024 mammogram, 03/30/2024 mammogram, mammogram, and 05/19/[address] - [facility]. There are scattered areas of fibroglandular density in the right breast (category b / 25%-50% glandul ar tissue). There is a marker clip in the appropriate position in the right breast at 12 o'clock anterior depth. This marker clip placement is at the biopsy site. IMPRESSION: POST PROCEDURE MAMMOGRAM FOR MARKER PLACEMENT There was a successful marker clip placement in the right breast anterior depth. Based on the Tyrer Cuzick model (a risk assessment model) the patient's lifetime risk is 4.4% and her 10 year risk is 3.0%. According to the ACR, ACS, and NCCN guidelines, an annual breast MRI exam lorraine g with mammogram is recommended if the patient's lifetime risk is 20% or greater. This exam was interpreted at Station ID: [id number]. NOTE: For mammograms, a report in lay terms will be sent to the patient. Approximately 15% of breast malignancies will not be visualized mammographically. In the management of a palpable breast mass, a negative mammogram must not discourage biopsy of a clinically suspicious lesion. Electronically Signed By: Gordon Parekh M.D. ar/penrad:05/19/2024 21:06:38 ACR BI-RADS Category Post-procedure mammogram for marker placement PARENCHYMAL PATTERN: (A) - The breast(s) demonstrate(s) scattered fibroglandular densities. BI-RADS CATEGORY: () - Unspecified - other recall n/a LATERALITY: (B)
--- NOTE | 2024-05-21 13:06 | Ultrasound Report ---
ULTRASOUND GUIDED BIOPSY RIGHT BREAST USING VACUUM DEVICE WITH MARKING DEVICE INSERTED AND POST DIGIT AL MAMMOGRAPHIC IMAGIN05/19/2024 CLINICAL: Post right breast ultrasound biopsy clip placement imaging. PATIENT CONSENT: Risks (minor bleeding, infection, vasovagal reaction and repeat procedure), benefits and alternatives were explained to the patient and written informed consent was obtained. Correlation is made to exams dated: 05/19/2024 mammogram, 05/05/2024 ultrasound, 05/05/2024 mammogram, mammogram, and 10/18/2021 mammogram - [facility]. An ultrasound guided biopsy using real-time ultrasound was performed for the 0.8 cm x 0.4 cm x 0.7 cm oval mass located in the right breast at 12 o'clock in the retroareolar region 1 cm from the nipple. This was described on the previous mammography and ultrasound reports. The skin was prepped in the usual manner. Local anesthetic was administered to the access site. A skin katelin was made in the br east. The abnormality was approached from the lateral aspect. A 13 gauge biopsy needle was placed a djacent to the abnormality under ultrasound guidance. Once the needle was documented to be in the co rrect location, four specimens were obtained using the [employer] biopsy system. A clip was inserted into the biopsy cavity. A sterile dressing was applied to the access site. Post procedure digital m ammographic imaging demonstrates the location device at the targeted area. The specimens were sent t o the laboratory for pathological analysis. IMPRESSION: ULTRASOUND GUIDED BIOPSY BENIGN Ultrasound guided biopsy of the 0.8 cm x 0.4 cm x 0.7 cm mass in the right breast at 12 o'clock in th e retroareolar region 1 cm from the nipple was successful with no apparent post procedure complicatio ns. Pathology indicates benign "involuting fibroadenoma. Negative for duct epithelial hyperplasia, in sit u or invasive carcinoma." Pathology results are concordant with imaging findings. Return to annual mammogram screening schedule is recommended. This exam was interpreted at Station ID: [id number]. Gordon Parekh M.D. ar/:05/21/2024 10:10:41 BI-RADS CATEGORY: () - Mammogram [id number] return to screening LATERALITY: (B)
== END 2024-05-19 10:00 | disposition home or self-care (01) ==
LOC: DI 09:59
PROVIDERS: ATTEND Nurse Practitioner
DX: D24.1 Benign neoplasm of right breast (principal)
CPT/HCPCS: 19083

== ENCOUNTER 2024-05-20 12:50 | Outpatient (CLI) | payer MEDICARE, BC ==
--- NOTE | 2024-05-21 11:45 | DEXA Report ---
PROCEDURE: Dexa Spine and/or Hip INDICATIONS: POST MENOPAUSAL TECHNIQUE: Dual energy x-ray absorptiometry (DXA) was performed on a [email or web address] System. Regions measur ed are the AP Spine, femoral neck, and if needed forearm. COMPARISON: 02/21/2022 FINDINGS: Lumbar Spine: Bone Mineral Density: 1.095 g/cm/cm,T score: -0.7, normal. Change from previous 1.1% Left Femoral Neck: Bone Mineral Density: 0.746 g/cm/cm, T score: -2.1, osteopenia. Left Hip: Bone Mineral Density: 0.756 g/cm/cm,T score: -2.0, osteopenia. Change from previous -2.7% (T score greater or equal to -1.0: NORMAL) (T score from -1.1 to -2.4: OSTEOPENIA) (T score less than or equal to -2.5 to: OSTEOPOROSIS) Impression: By WHO criteria, this patient has low bone density (osteopenia). No significant interval change in bone mineral density of the lumbar spine. No significant interval c hange in bone mineral density of the hip. Patients with diagnosis of osteoporosis or osteopenia should have regular bone mineral density assess ment. For those eligible for Medicare, routine testing is allowed once every 2 years. Testing frequ ency can be increased for patients who have rapidly progressing disease or for those who are receivin g medical therapy to restore bone mass. Reviewed by: Cinthia Maldonado MD on 05/21/2024 11:43 AM PDT Approved by: Cinthia Maldonado MD on 05/21/2024 11:43 AM PDT Station ID: [id number]
== END 2024-05-20 12:51 | disposition home or self-care (01) ==
LOC: DI 12:50
PROVIDERS: ATTEND Nurse Practitioner
DX: M85.89 Other specified disorders of bone density and structure, multiple sites (principal); Z78.0 Asymptomatic menopausal state

== ENCOUNTER 2024-06-04 09:21 | Outpatient (CLI) | payer MEDICARE, BC ==
[2024-06-04 09:33] LABS: BASOPHILS # (AUTO) 0.1 10^3/uL (0.0-0.1); BASOPHILS % (AUTO) 1.7 %; EOSINOPHILS # (AUTO) 0.1 10^3/uL (0.0-0.7); EOSINOPHILS % (AUTO) 2.2 %; HCT - HEMATOCRIT 41.8 % (37.0-47.0); HGB - HEMOGLOBIN 13.2 g/dL (12.0-16.0); LYMPHOCYTES # (AUTO) 1.6 10^3/uL (1.5-3.5); LYMPHOCYTES % (AUTO) 38.7 %; MEAN CORPUSCULAR HEMOGLOBIN 30.6 pg (27.0-31.0); MEAN CORPUSCULAR HGB CONC 31.6 g/dL (32.0-36.0); MEAN CORPUSCULAR VOLUME 96.8 fL (81.0-99.0); MEAN PLATELET VOLUME 9.1 fL (7.9-10.8); MONOCYTES # (AUTO) 0.5 10^3/uL (0.0-1.0); MONOCYTES % (AUTO) 11.2 %; NEUTROPHILS # (AUTO) 1.9 10^3/uL (1.5-6.6); PLT - PLATELET COUNT 190 10^3/uL (130-450); RED BLOOD COUNT 4.32 10^6/uL (4.20-5.40); RED CELL DISTRIBUTION WIDTH 13.7 % (12.0-15.0)
[2024-06-04 09:48] LABS: ALBUMIN 4.2 g/dL (3.2-5.5); ALBUMIN/GLOBULIN RATIO 1.7 (1.0-2.2); ALKALINE PHOSPHATASE 78 IU/L (42-121); ALT ALANINE AMINOTRANSFERASE 9 IU/L (10-60); AST ASPARTATE AMINOTRANSFERASE 16 IU/L (10-42); BILIRUBIN,TOTAL 0.6 mg/dL (0.2-1.0); BUN - BLOOD UREA NITROGEN 9 mg/dL (6-20); CALCIUM 9.6 mg/dL (8.5-10.3); CARBON DIOXIDE - CO2 31 mmol/L (21-32); CHLORIDE 104 mmol/L (101-111); CHOL/HDL RATIO 3.4 (<4.4); CHOLESTEROL 185 mg/dL; CREATININE 0.9 mg/dL (0.6-1.3); GFR - MDRD 62 (>89); GLUCOSE 107 mg/dL (74-104); HDL CHOLESTEROL 55 mg/dL; LDL CHOLESTEROL,CALCULATED 115 mg/dL; LDL/HDL RATIO 2.1 (<4.4); SODIUM 141 mmol/L (135-145); TOTAL PROTEIN 6.7 g/dL (6.4-8.9); TRIGLYCERIDES 73 mg/dL (48-352); VLDL CHOLESTEROL 15 mg/dL
[2024-06-04 10:04] LABS: THYROID STIMULATING HORMONE 2.56 uIU/mL (0.34-5.60)
== END 2024-06-04 09:22 | disposition home or self-care (01) ==
LOC: LAB 09:21
PROVIDERS: ATTEND Nurse Practitioner
DX: R53.83 Other fatigue (principal); E03.9 Hypothyroidism, unspecified; K70.30 Alcoholic cirrhosis of liver without ascites; E78.5 Hyperlipidemia, unspecified
CPT/HCPCS: 36415; 80053; 80061; 83721; 84439; 84443; 85025

== ENCOUNTER 2024-07-21 08:00 | Outpatient (CLI) | payer MEDICARE, BC | END 2024-07-21 23:59 | disposition home or self-care (01) | LOC: LAB.N 08:00 | PROVIDERS: ATTEND Physician Assistant Medical | DX: R11.2 Nausea with vomiting, unspecified (principal); R19.7 Diarrhea, unspecified ==

== ENCOUNTER 2024-07-30 12:25 | Day surgery (SDC) | payer MEDICARE, BC ==
[2024-07-30] MEDS: LACTATED RINGERS 1,000 ML IV ONE ×2 (12:57→15:12)
--- NOTE | 2024-07-30 13:24 | ANESTHESIA ---
Pre-Anesthesia VS, & Labs - Diagnosis screening exam - Procedure colonoscopy Vital Signs: Temp Pulse Resp BP Pulse Ox O2 Flow Rate 36.5 C 65 10 L 135/66 H 97 07/30/24 12:57 07/30/24 12:57 07/30/24 12:57 07/30/24 12:57 07/30/24 12:57 Height: 5 ft 3 in Weight (kg): 66.3 kg Body Mass Index: 25.9 BMI Classification: Overweight - NPO >8 hours - Is Patient ?: No Home Medications and Allergies Home Medications: Ambulatory Orders Cholecalciferol (Vitd3)/Vit K2 [Vit D3-Vit K2 125-100 Mcg Sfgl] 1 tab PO DAILY 07/29/24 Fluticasone [Flonase] 1 sprays MELISSA DAILY 07/29/24 Zinc Gluconate [Zinc] 50 mg PO DAILY 07/29/24 diphenhydrAMINE [Benadryl] 25 mg PO DAILY 07/29/24 Levothyroxine Sodium [Levoxyl] 75 mcg PO DAILY 02/11/18 Metoprolol Succinate 25 mg PO BID 02/11/18 Potassium Chloride [Micro-K] 20 meq PO DAILY 02/11/18 Cholecalciferol (Vitd3)/Vit K2 [Vit D3-Vit K2 125-100 Mcg Sfgl] 1 tab PO DAILY 07/29/24 Fluticasone [Flonase] 1 sprays MELISSA DAILY 07/29/24 Zinc Gluconate [Zinc] 50 mg PO DAILY 07/29/24 diphenhydrAMINE [Benadryl] 25 mg PO DAILY 07/29/24 Allergies/Adverse Reactions: Allergies Allergy/AdvReac Type Severity Reaction Status Date / Time No Known Drug Allergies Allergy Verified 02/11/18 18:33 Anes History & Medical History - Anesthetic History Anesthesia Complications: reports: No previous complications - Medical History Cardiovascular: reports: Hypertension Pulmonary: reports: COPD Gastrointestinal: reports: Cirrhosis (ETOH) Urinary: reports: None Neuro: reports: None Musculoskeletal: reports: Osteoarthritis, Osteopenia Endocrine/Autoimmune: reports: HyPOthyroidism Skin: reports: Herpes zoster, Other Smoking Status: Former smoker (Quit 1989) Psychosocial: reports: Cannabis (daily use) History of Cancer?: No - Surgical History General: reports: Cholecystectomy, Colonoscopy, EGD Eyes Ears Nose Throat (EENT): reports: Cataracts, Tonsil/Adenoidectomy Exam General: Alert, Oriented x3, Cooperative, No acute distress Dental: Other (several missing) Mouth Openin Fingerbreadth Neck Mobility: Normal Mallampati classification: I Thyromental Distance: 4-6 cm Mental/Cognitive Status: Alert/Oriented X3, Normal for patient Plan Anesthesia Type: General, Total IV Consent for Procedure(s) Verified and Reviewed: Yes Code Status: Attempt Resuscitation ASA classification: 2-Mild systemic disease Is this case an emergency?: No
[2024-07-30] MEDS ORDERED: PROPOFOL 500 MG/50 ML 500 MG/50 ML VIAL ONE (13:50)
[2024-07-30] MEDS ORDERED: LIDOCAINE-MPF 2% 5 ML VIAL ONE (13:50)
--- NOTE | 2024-07-30 14:22 | HISTORY & PHYSICAL EXAMINATION ---
Chief Complaint - Chief Complaint Chief Complaint: here for colonoscopy History of Present Illness - History Obtained From Records Reviewed: yes History obtained from: pt Exam Limitations: none - History of Present Illness HPI Comment/Other: normal colonoscopy 12 years ago. no gi problems or anemia. History - Past Medical History Cardiovascular: reports: Hypertension Respiratory: reports: COPD Neuro: reports: None Endocrine/Autoimmune: reports: HyPOthyroidism GI: reports: Cirrhosis (ETOH) : reports: None Psych: reports: Depression, Anxiety, Panic attacks Musculoskeletal: reports: Osteoarthritis, Osteopenia Derm: reports: Herpes zoster, Other MRSA Hx?: No - Past Surgical History General: reports: Cholecystectomy, Colonoscopy, EGD HEENT: reports: Cataracts, Tonsil/Adenoidectomy Meds/Allgy - Home Medications Home Medications: Ambulatory Orders Medication Instructions Recorded Confirmed Levothyroxine Sodium [Levoxyl] 75 mcg PO DAILY 02/11/18 07/29/24 Metoprolol Succinate 25 mg PO BID 02/11/18 07/29/24 Potassium Chloride [Micro-K] 20 meq PO DAILY 02/11/18 07/29/24 Cholecalciferol (Vitd3)/Vit K2 1 tab PO DAILY 07/29/24 07/29/24 [Vit D3-Vit K2 125-100 Mcg Sfgl] Fluticasone [Flonase] 1 sprays MELISSA DAILY 07/29/24 07/30/24 Zinc Gluconate [Zinc] 50 mg PO DAILY 07/29/24 07/29/24 diphenhydrAMINE [Benadryl] 25 mg PO DAILY 07/29/24 07/29/24 - Allergies Allergies/Adverse Reactions: Allergies Allergy/AdvReac Type Severity Reaction Status Date / Time No Known Drug Allergies Allergy Verified 02/11/18 18:33 Review of Systems - Other Findings Other Findings: 10 pt ros as above otherwise unremarkable Exam - Vital Signs Vital Signs: Vital Signs x48h Temp Pulse Resp BP Pulse Ox 07/30/24 12:57 36.5 C 65 10 L 135/66 H 97 - Physical Exam General Appearance: positive: No acute distress, Alert Eyes Bilateral: positive: PERRL, EOMI ENT: positive: No signs of dehydration Neck: positive: No JVD, Trachea midline Respiratory: positive: No respiratory distress Cardiovascular: positive: Regular rate & rhythm Abdomen: positive: No distention Neurologic/Psychiatric: positive: Oriented x3 Conclusion/Plan - Problem List (1) Colon cancer screening Conclusion/Plan: plan colonoscopy. parq held and consent obtained
--- NOTE | 2024-07-30 15:31 | ANESTHESIA POST OP EVALUATION ---
Anesthesia Post Eval - Post Anesthesia Eval Vitals: Last Vital Signs Temp 36.6 C 07/30/24 15:13 Pulse 88 07/30/24 15:13 Resp 16 07/30/24 15:13 BP 112/48 L 07/30/24 15:13 Pulse Ox 100 07/30/24 15:13 O2 Flow Rate CV Function Including HR & BP: Stable Pain Control: Satisfactory Nausea & Vomiting: Negative Mental Status: Baseline Respiratory Status: Airway Patent Hydration Status: Satisfactory Anesthesia Complications: None
[2024-07-30 16:02] VITALS: BP 138/60; O2SAT 99
== END 2024-07-30 12:26 | disposition home or self-care (01) ==
LOC: SDS 12:25
PROVIDERS: ATTEND Surgery
PROC: 0DBM8ZX Excision of Descending Colon, Via Natural or Artificial Opening Endoscopic, Diagnostic (ICD-10-PCS; principal; 2024-07-30 14:00)
DX: Z12.11 Encounter for screening for malignant neoplasm of colon (principal); D12.4 Benign neoplasm of descending colon; I10 Essential (primary) hypertension; J44.9 Chronic obstructive pulmonary disease, unspecified; Z87.891 Personal history of nicotine dependence
CPT/HCPCS: 45380; J7120